=== PATIENT | male | born 1990 | race Caucasian/White ===

== ENCOUNTER 2016-12-24 03:10 | Inpatient (IN) | payer OTHER ==
--- NOTE | 2016-12-24 03:38 | HP ---
COWS - Scale Resting Pulse: 0= [place] 80 or Below Sweatin= Chills/Flushing Restless Observation: 3= Extraneous Movement Pupil Size: 0= Normal to Room Light Bone or Joint Aches: 2= Severe Diffuse Aches Runny Nose/ Eye Tearin= Runny Nose/Eyes GI Upset > 30mins: 2= Nausea/Diarrhea Tremor Observation: 1= Tremor [place], Not Seen Yawning Observation: 1= 1-2x During Session Anxiety or Irritability: 2=Irritable/Anxious Goose Flesh Skin: 0=Smooth Skin COWS Score: 14 Admission ROS [facility] - [facility] Chief Complaint: WITHDRAWAL SYMPTOMS Allergies/Adverse Reactions: Allergies Allergy/AdvReac Type Severity Reaction Status Date / Time amoxicillin AdvReac Verified 12/24/16 03:35 Penicillins AdvReac Verified 12/24/16 03:35 History of Present Illness: 26 Y.O. MAN WITH AN EXTENSIVE HISTORY OF DRUG DEPENDENCE IS SEEKING DETOX. HE WAS PREVIOUSLY ON SUBOXONE BUT DISCONTINUED THE MEDICATION TWO MONTHS AGO. BEFORE COMING TO [facility], HE WAS TREATED AT [facility] FOR HEROIN WITHDRAWAL. THIS IS HIS FIRST TIME IN DETOX. Exam Limitations: No Limitations - Ebola screening Have you traveled outside of the country in the last 21 days: No - Review of Systems Constitutional: Chills, Loss of Appetite, Night Sweats EENT: reports: Tearing Respiratory: reports: No Symptoms reported Cardiac: reports: No Symptoms Reported GI: reports: No Symptoms Reported : reports: No Symptoms Reported Musculoskeletal: reports: Joint Pain, Muscle Pain Integumentary: reports: No Symptoms Reported Neuro: reports: Headache, Tremors Endocrine: reports: No Symptoms Reported Hematology: reports: No Symptoms Reported Psychiatric: reports: Mood/Affect Appropiate, Orientated x3, Anxious Other Systems: Reviewed and Negative Patient History - Patient Medical History Hx Anemia: No Hx Asthma: No Hx Chronic Obstructive Pulmonary Disease (COPD): No Hx Cancer: No Hx Cardiac Disorders: No Hx Congestive Heart Failure: No Hx Hypertension: No Hx Hypercholesterolemia: No Hx Pacemaker: No HX Cerebrovascular Accident: No Hx Seizures: No Hx Dementia: No Hx Diabetes: No Hx Gastrointestinal Disorders: No Hx Liver Disease: No Hx Genitourinary Disorders: No Hx Sexually Transmitted Disorders: No Hx Renal Disease (ESRD): No Hx Thyroid Disease: No Hx Human Immunodeficiency Virus (HIV): No Hx Hepatitis C: No Hx Depression: No Hx Suicide Attempt: No Hx Bipolar Disorder: No Hx Schizophrenia: No - Patient Surgical History Past Surgical History: Yes Hx Neurologic Surgery: No Hx Cataract Extraction: No Hx Cardiac Surgery: No Hx Lung Surgery: No Hx Breast Surgery: No Hx Breast Biopsy: No Hx Abdominal Surgery: No Hx Appendectomy: Yes (1988) Hx Cholecystectomy: No Hx Genitourinary Surgery: No Hx Orthopedic Surgery: No Hx Hysterectomy: No Other Surgical History: Intussusception-1988 Anesthesia Reaction: No - PPD History Previous Implant?: Yes Documented Results: Negative w/o proof PPD to be Administered?: Yes - Reproductive History Patient is a Female of Child Bearing Age (11 -55 yrs old): No - Smoking Cessation Smoking history: Current every day smoker Have you smoked in the past 12 months: Yes Aproximately how many cigarettes per day: 15 Hx Chewing Tobacco Use: No Initiated information on smoking cessation: Yes 'Breaking Loose' booklet given: 12/24/16 - Substance & Tx. History Hx Alcohol Use: No Hx Substance Use: Yes Substance Use Type: Heroin Hx Substance Use Treatment: Yes (REHAB ) - Substances Abused Heroin Route: Inhalation Frequency: Daily Amount used: 1.5 BUNDLES Age of first use: 23 Date of Last Use: 12/22/16 Family Disease History - Family Disease History Family History: Unable to Obtain Other Family History: PT. IS ADOPTED Admission Physical Exam BHS - Vital Signs Vital Signs: Last Vital Signs Temp Pulse Resp BP Pulse Ox 97.6 F 79 16 126/76 12/24/16 04:03 12/24/16 04:03 12/24/16 04:03 12/24/16 04:03 - Physical General Appearance: Yes: Disheveled, Anxious HEENTM: Yes: Hearing grossly Normal, Normal ENT Inspection, Normocephalic, Normal Voice Respiratory: Yes: Chest Non-Tender, Lungs Clear, Normal Breath Sounds, No Respiratory Distress, No Accessory Muscle Use Neck: Yes: No masses,lesions,Nodules Breast: Yes: Breast Exam Deferred Cardiology: Yes: Regular Rhythm, Regular Rate Abdominal: Yes: Normal Bowel Sounds, Non Tender, Flat, Soft Genitourinary: Yes: Within Normal Limits Back: Yes: Normal Inspection Musculoskeletal: Yes: Joint Stiffness Extremities: Yes: Normal Capillary Refill, Normal Inspection, Normal Range of Motion, Non-Tender Neurological: Yes: Fully Oriented, Alert, Motor Strength 5/5, Normal Mood/Affect , Normal Response Integumentary: Yes: Normal Color, Dry, Warm Lymphatic: Yes: Within Normal Limits - Diagnostic (1) Opioid dependence with withdrawal Current Visit: Yes Status: Chronic (2) Restless leg syndrome Current Visit: Yes Status: Chronic Cleared for Admission [facility] - Detox or Rehab [facility] Level of Care: Medically Managed Detox Regimen/Protocol: Methadone [facility] Breath Alcohol Content Breath Alcohol Content: 0 Vital Signs - Vital Signs Vital Signs Refused: No Temperature: 97.6 F Temperature Source: Oral Pulse Rate: 79 Respiratory Rate: 16 Blood Pressure: 126/76 BP Location: Left Arm Blood Pressure Position: Sitting - Height Height: 5 ft 10 in - Weight Weight: 188 lb Weight Measurement Method: Standing Scale Body Mass Index (BMI): 26.9 Urine Drug Screen - Control Is Test Valid: Yes - Results Drug Screen Negative: No Urine Drug Screen Results: OPI-Opiates, BZO-Benzodiazepines, MTD-Methadone, TCA- Tricyclic Antidepress
[2016-12-24] MEDS ORDERED: P-EPHED 60MG/TRIPROLIDI 2.5MG TABLET PO PRN (03:50)
[2016-12-24] MEDS ORDERED: LOPERAMIDE HCL 2 MG CAPSULE PO PRN (03:50)
[2016-12-24] MEDS ORDERED: hydrOXYzine PAMOATE 50 MG CAPSULE (FP) PO PRN (03:50)
[2016-12-24] MEDS ORDERED: guaiFENesin/D-METHORPHAN HB 10 ML UNIT-DOSE CUPS PO PRN (03:50)
[2016-12-24] MEDS ORDERED: METHADONE HCL 10 MG TABLET (FOR DETOX USE ONLY) PO ONE ×3 (03:50→23:00)
[2016-12-24] MEDS ORDERED: MAGNESIUM CITRATE 300 ML BOTTLE PO PRN (03:50)
[2016-12-24] MEDS ORDERED: IBUPROFEN 400 MG TABLET (FP) PO PRN (03:50)
[2016-12-24] MEDS ORDERED: MAG HYDROX/AL HYDROX/SIMETH 30 ML UNIT-DOSE CUP PO PRN (03:50)
[2016-12-24] MEDS ORDERED: ACETAMINOPHEN 325 MG TABLET (FP) PO PRN (03:50)
[2016-12-24] MEDS ORDERED: MAGNESIUM HYDROX 2400MG/30ML ORAL SUSPENSION 30 ML CUP PO PRN (03:50)
[2016-12-24] MEDS ORDERED: MENTHOL/PHENOL 1 EACH UD MM PRN (03:50)
[2016-12-24] MEDS ORDERED: LIDOCAINE VISCOUS 2% ORAL/TOP 20 ML UNIT-DOSE CUP MM PRN (03:57)
[2016-12-24 04:04] VITALS: BMI 26.9
[2016-12-24] MEDS: diazePAM 5 MG TABLET PO PRN ×5 (04:43→23:49)
[2016-12-24] MEDS: PRENATAL VITAMINS W/ FOLIC ACID TABLET (FP) PO SCH (11:03)
[2016-12-24] MEDS: NICOTINE POLACRILEX 2 MG GUM BC PRN (11:03)
--- NOTE | 2016-12-24 13:14 | PN ---
BHS COWS - Scale Resting Pulse: 1= [place] 81-100 Sweatin=Flushed/Facial Moisture Restless Observation: 3= Extraneous Movement Pupil Size: 1= Pupils >than Normal Bone or Joint Aches: 2= Severe Diffuse Aches Runny Nose/ Eye Tearin= Nasal Congestion GI Upset > 30mins: 2= Nausea/Diarrhea Tremor Observation of Outstretched Hands: 2= Slight Tremor Visible Yawning Observation: 1= 1-2x During Session Anxiety or Irritability: 2=Irritable/Anxious Goose Flesh Skin: 0=Smooth Skin COWS Score: 17 BHS Progress Note (SOAP) Subjective: ALERT,IRRITABLE,ANXIOUS,INTERRUPTED SLEEP,PAIN IN HE BODY AND BACK Objective: 12/24/16 13:12 Vital Signs Temperature 98.1 F 12/24/16 10:38 Pulse Rate 81 12/24/16 10:38 Respiratory Rate 16 12/24/16 10:38 Blood Pressure 119/73 12/24/16 10:38 O2 Sat by Pulse Oximetry (%) EKG NSR,NORMAL ECG LABS PENDING Assessment: 12/24/16 13:14 WITHDRAWAL SYMPTOM Plan: CONTINUE DETOX
[2016-12-24 18:42] LABS: URINE APPEARANCE CLEAR; URINE BILIRUBIN NEGATIVE (NEGATIVE); URINE BLOOD NEGATIVE (NEGATIVE); URINE COLOR AMBER; URINE GLUCOSE (UA) NEGATIVE (NEGATIVE); URINE KETONE TRACE (NEGATIVE); URINE LEUK ESTERASE NEGATIVE (NEGATIVE); URINE NITRITE NEGATIVE (NEGATIVE); URINE PROTEIN NEGATIVE (NEGATIVE); URINE UROBILINOGEN 2.0 E.U/dl E.U./dl (0.2-1.0)
[2016-12-24] MEDS: THIAMINE HCL 100 MG TABLET (FP) PO SCH (22:30)
[2016-12-24] MEDS: diphenhydrAMINE HCL 50 MG CAPSULE PO PRN (22:30)
[2016-12-25] MEDS ORDERED: METHADONE HCL 10 MG TABLET (FOR DETOX USE ONLY) PO ONE (10:00)
[2016-12-25 10:02] LABS: MCH 27.8 pg (25.7-33.7); MCHC 33.2 g/dl (32.0-35.9); MEAN CELL VOLUME 83.8 fl (80-96); MEAN PLT VOLUME 9.2 fl (7.5-11.1); PLATELET COUNT 275 K/MM3 (134-434); RDW 13.8 % (11.9-15.9)
[2016-12-25 10:09] LABS: ALBUMIN 4.2 g/dl (3.4-5.0); CALCIUM 9.2 mg/dL (8.5-10.1)
[2016-12-25 10:15] LABS: ALK PHOS 92 U/L (45-117); ANION GAP 7 (8-16); BILIRUBIN,TOTAL 0.5 mg/dL (0.2-1.0); CO2 30 mmol/L (21-32); CREATININE 0.9 mg/dL (0.7-1.3); GLUCOSE,RANDOM 88 mg/dL (74-106); SGOT/AST 12 U/L (15-37); SGPT/ALT 21 U/L (12-78); TOT PROT 7.2 g/dl (6.4-8.2)
[2016-12-25] MEDS: cloNIDine HCL 0.1 MG TABLET PO SCH ×2 (10:41→22:10)
[2016-12-25] MEDS: PRENATAL VITAMINS W/ FOLIC ACID TABLET (FP) PO SCH (10:41)
[2016-12-25] MEDS: diazePAM 5 MG TABLET PO PRN ×4 (10:42→23:19)
[2016-12-25] MEDS: NICOTINE POLACRILEX 2 MG GUM BC PRN (10:45)
--- NOTE | 2016-12-25 11:38 | EKG ---
Test Reason : Blood Pressure : / mmHG Vent. Rate : 063 BPM Atrial Rate : 063 BPM P-R Int : 144 ms QRS Dur : 090 ms QT Int : 396 ms P-R-T Axes : 044 011 038 degrees QTc Int : 405 ms NORMAL SINUS RHYTHM NORMAL ECG NO PREVIOUS ECGS AVAILABLE Confirmed by KASEY CAREY MD ([id number]) on 12/25/2016 11:37:59 AM Referred By: Confirmed By:KASEY CAREY MD
[2016-12-25] MEDS ORDERED: CYCLOBENZAPRINE HCL 10 MG TABLET (FP) PO PRN (11:54)
--- NOTE | 2016-12-25 12:02 | PN ---
BHS COWS - Scale Resting Pulse: 1= [place] 81-100 Sweatin=Flushed/Facial Moisture Restless Observation: 3= Extraneous Movement Pupil Size: 1= Pupils >than Normal Bone or Joint Aches: 2= Severe Diffuse Aches Runny Nose/ Eye Tearin= Runny Nose/Eyes GI Upset > 30mins: 2= Nausea/Diarrhea Tremor Observation of Outstretched Hands: 2= Slight Tremor Visible Yawning Observation: 1= 1-2x During Session Anxiety or Irritability: 2=Irritable/Anxious Goose Flesh Skin: 0=Smooth Skin COWS Score: 18 BHS Progress Note (SOAP) Subjective: ALERT,IRRITABLE,ANXIOUS,INTERRUPTED SLEEP,TREMOR,PAIN IN THE BODY AND BACK Objective: 12/25/16 12:00 Vital Signs Temperature 97.7 F 12/25/16 09:59 Pulse Rate 86 12/25/16 09:59 Respiratory Rate 20 12/25/16 09:59 Blood Pressure 138/81 12/25/16 09:59 O2 Sat by Pulse Oximetry (%) Laboratory Last Values WBC 8.0 K/mm3 (4.0-10.0) 12/25/16 07:16 RBC 4.77 M/mm3 (4.00-5.60) 12/25/16 07:16 Hgb 13.3 GM/dL (11.7-16.9) 12/25/16 07:16 Hct 40.0 % (35.4-49) 12/25/16 07:16 MCV 83.8 fl (80-96) 12/25/16 07:16 MCHC 33.2 g/dl (32.0-35.9) 12/25/16 07:16 RDW 13.8 % (11.9-15.9) 12/25/16 07:16 Plt Count 275 K/MM3 (134-434) 12/25/16 07:16 MPV 9.2 fl (7.5-11.1) 12/25/16 07:16 Sodium 140 mmol/L (136-145) 12/25/16 07:16 Potassium 3.8 mmol/L (3.5-5.1) 12/25/16 07:16 Chloride 103 mmol/L (98-107) 12/25/16 07:16 Carbon Dioxide 30 mmol/L (21-32) 12/25/16 07:16 Anion Gap 7 (8-16) L 12/25/16 07:16 BUN 10 mg/dL (7-18) 12/25/16 07:16 Creatinine 0.9 mg/dL (0.7-1.3) 12/25/16 07:16 Creat Clearance w eGFR > 60 (>60) 12/25/16 07:16 Random Glucose 88 mg/dL (74-106) 12/25/16 07:16 Calcium 9.2 mg/dL (8.5-10.1) 12/25/16 07:16 Total Bilirubin 0.5 mg/dL (0.2-1.0) 12/25/16 07:16 AST 12 U/L (15-37) L 12/25/16 07:16 ALT 21 U/L (12-78) 12/25/16 07:16 Alkaline Phosphatase 92 U/L (45-117) 12/25/16 07:16 Total Protein 7.2 g/dl (6.4-8.2) 12/25/16 07:16 Albumin 4.2 g/dl (3.4-5.0) 12/25/16 07:16 Urine Color [place] 12/24/16 17:00 Urine Appearance Clear 12/24/16 17:00 Urine pH 5.0 (5.0-8.0) 12/24/16 17:00 Ur Specific [place] 1.033 (1.001-1.035) 12/24/16 17:00 Urine Protein Negative (NEGATIVE) 12/24/16 17:00 Urine Glucose (UA) Negative (NEGATIVE) 12/24/16 17:00 Urine Ketones Trace (NEGATIVE) H 12/24/16 17:00 Urine Blood Negative (NEGATIVE) 12/24/16 17:00 Urine Nitrite Negative (NEGATIVE) 12/24/16 17:00 Urine Bilirubin Negative (NEGATIVE) 12/24/16 17:00 Urine Urobilinogen 2.0 e.u/dl E.U./dl (0.2-1.0) 12/24/16 17:00 Ur Leukocyte Esterase Negative (NEGATIVE) 12/24/16 17:00 RPR Titer Nonreactive (NONREACTIVE) 12/25/16 07:16 Assessment: 12/25/16 12:01 WITHDRAWAL SYMPTOM Plan: CONTINUE DETOX
[2016-12-25] MEDS: NICOTINE POLACRILEX 4 MG GUM BUC PRN ×3 (13:14→21:25)
[2016-12-25] MEDS: THIAMINE HCL 100 MG TABLET (FP) PO SCH (22:10)
[2016-12-25] MEDS: diphenhydrAMINE HCL 50 MG CAPSULE PO PRN (22:11)
[2016-12-26 06:35] VITALS: BP 94/63; PULSE 69; TEMP 96.8
[2016-12-26] MEDS ORDERED: METHADONE HCL 5 MG TABLET (FOR DETOX USE ONLY) PO ONE (10:00)
[2016-12-26] MEDS: cloNIDine HCL 0.1 MG TABLET PO SCH (10:25)
[2016-12-26] MEDS: PRENATAL VITAMINS W/ FOLIC ACID TABLET (FP) PO SCH (10:25)
--- NOTE | 2016-12-26 10:37 | PN ---
S Progress Note Note: pt did not want to complete detox; pt states he has a court date today; pt signed out AMA.
--- NOTE | 2016-12-26 10:37 | DS ---
[facility] Detox Discharge Summary Admission Date: 12/24/16 Discharge Date: 12/26/16 - History Present History: Opioid Dependence - Physical Exam Results Vital Signs: Vital Signs Temperature 96.8 F L 12/26/16 06:00 Pulse Rate 69 12/26/16 06:00 Respiratory Rate 18 12/26/16 06:00 Blood Pressure 94/63 12/26/16 06:00 O2 Sat by Pulse Oximetry (%) - Medication Discharge Medications: Ambulatory Orders Clonazepam [Klonopin] 1 mg PO DAILY 12/24/16 Quetiapine Fumarate [Seroquel -] 50 mg PO HS 12/24/16 Ropinirole HCl 0.5 mg PO DAILY 12/24/16 - Diagnosis (1) Opioid dependence with withdrawal Current Visit: Yes Status: Chronic (2) Restless leg syndrome Current Visit: Yes Status: Chronic - AMA Did Patient Leave Against Medical Advice: Yes
[2016-12-27] MEDS ORDERED: METHADONE HCL 5 MG TABLET (FOR DETOX USE ONLY) PO ONE (10:00)
[2016-12-28] MEDS ORDERED: METHADONE HCL 10 MG TABLET (FOR DETOX USE ONLY) PO ONE (10:00)
[2016-12-29] MEDS ORDERED: METHADONE HCL 5 MG TABLET (FOR DETOX USE ONLY) PO ONE (06:00)
== END 2016-12-26 10:50 | disposition left against medical advice (07) | DRG 770 ==
LOC: YASAS 03:10 → Y6N 03:43
PROVIDERS: ADMIT Internal Medicine; ATTEND Internal Medicine
PROC: HZ2ZZZZ Detoxification Services for Substance Abuse Treatment (ICD-10-PCS; principal; 2016-12-26)
DX: F10.230 Alcohol dependence with withdrawal, uncomplicated (principal); G25.81 Restless legs syndrome
CPT/HCPCS: 36415; 80053; 81003; 85027; 86593; 93005; 93010